=== PATIENT | male | born 1980 | race Hispanic/Latino ===

== ENCOUNTER 2020-11-22 21:27 | Inpatient (IN) | payer MEDICAID ==
[~2020-11-22] VITALS: Ht 185.4 cm; Wt 135.6 kg
[2020-11-22 21:33] VITALS: BP 151/92
[2020-11-22] MEDS ORDERED: DiphenhydrAMINE HCL 50 MG/ML VIAL ONE (21:36)
[2020-11-22] MEDS ORDERED: ZIPRASIDONE MESYLATE 20 MG/VIAL IM ONE (21:36)
[2020-11-22] MEDS ORDERED: LORAZEPAM 2 MG/ML 1 ML VIAL ONE (21:37)
[2020-11-22] MEDS ORDERED: 0.9%NACL 1000ML 1,000 ML IV ONE ×2 (21:37→22:30)
[2020-11-22 22:30] LABS: BASOPHILS % (AUTO) 0.6 % (0.0-5.0); EOSINOPHILS % (AUTO) 0.5 % (0.0-8.0); HEMATOCRIT 43.1 % (42-54); LYMPHOCYTES % (AUTO) 17.2 % (21.0-51.0); MEAN CORPUSCULAR HEMOGLOBIN 29.5 pg (27.0-33.0); MEAN CORPUSCULAR HGB CONC 34.3 g/dL (32.0-36.0); MONOCYTES % (AUTO) 7.8 % (3.0-13.0); NEUTROPHILS % (AUTO) 73.5 % (40.0-77.0); PLATELET COUNT (AUTO) 165 K/uL (130-400); RED BLOOD CELL COUNT(AUTO) 5.01 MIL/uL (4.50-6.20); RED CELL DISTRIBUTION WIDTH 13.1 % (11.0-15.5); WHITE BLOOD COUNT (AUTO) 10.3 K/uL (4.8-10.8)
[2020-11-22 22:34] LABS: CREATININE 1.1 mg/dL (0.5-1.5); POTASSIUM 3.4 mmol/L (3.5-5.1)
[2020-11-22 22:38] LABS: ALBUMIN 4.1 g/dL (3.5-5.0); BILIRUBIN,TOTAL 2.1 mg/dL (0.2-1.0); TOTAL PROTEIN, SERUM 7.3 g/dL (6.0-8.3)
[2020-11-22 22:41] VITALS: BP 126/63
[2020-11-23] VITALS (12 sets, daily range): BP systolic 110–156; BP diastolic 62–92
[2020-11-23] MEDS ORDERED: 0.9%NACL 1000ML 1,000 ML IV ONE ×3 (01:00→03:31)
[2020-11-23] MEDS ORDERED: ZIPRASIDONE MESYLATE 20 MG/VIAL IM ONE (03:27)
[2020-11-23] MEDS ORDERED: SODIUM BICARB 50MEQ 50ML VIAL 50 ML ONE (03:27)
[2020-11-23] MEDS ORDERED: LORAZEPAM 2 MG/ML 1 ML VIAL ONE (03:28)
[2020-11-23] MEDS ORDERED: HALOPERIDOL INJ 5 MG/ML VIAL IV ONE (03:30)
[2020-11-23] MEDS ORDERED: SODIUM BICARB 8.4% 50ML SYRINGE IVP ONE (03:30)
[2020-11-23] MEDS ORDERED: LORAZEPAM 2 MG/ML 1 ML VIAL IVP ONE (03:30)
[2020-11-23] MEDS ORDERED: LORAZEPAM 2 MG/ML 1 ML VIAL IVP PRN (04:30)
[2020-11-23] MEDS: LORAZEPAM 2 MG/ML 1 ML VIAL IVP PRN ×4 (07:59→17:16)
[2020-11-23] MEDS ORDERED: VASOPRESSIN 20 UNITS in 0.9%NACL 100ML 100 ML IV SCH (08:30)
[2020-11-23] MEDS: ENOXAPARIN SODIUM 40 MG/0.4 ML SYRINGE SQ SCH (09:00)
[2020-11-23] MEDS: FAMOTIDINE 20MG TAB PO SCH ×2 (09:00→20:45)
[2020-11-23] MEDS: 0.9%NACL 1000ML 1,000 ML IV SCH ×5 (09:21→22:37)
[2020-11-23] MEDS ORDERED: HALOPERIDOL DECAN(MONTHLY) 100 MG/ML IM SCH (11:30)
[2020-11-23] MEDS ORDERED: HALOPERIDOL INJ 5 MG/ML VIAL ONE (11:35)
[2020-11-23] MEDS ORDERED: DEXMEDETOMIDINE HCL 400 MCG in 0.9%NACL 100ML 100 ML IV SCH (14:46)
[2020-11-23] MEDS: OLANZAPINE ODT 5 MG TAB SL SCH (15:00)
[2020-11-23] MEDS ORDERED: OLANZAPINE ODT 5 MG TAB SL SCH (15:26)
[2020-11-23] MEDS ORDERED: CLONAZEPAM 2 MG TABLET PO SCH (15:30)
[2020-11-23] MEDS: DEXMEDETOMIDINE HCL 400 MCG in 0.9%NACL 100ML 100 ML IV PRN ×3 (17:04→19:13)
[2020-11-23] MEDS: CLONAZEPAM 2 MG TABLET PO SCH (20:45)
[2020-11-23] MEDS: [UNRECOGNIZED DRUG - MIXTURE] IV PRN ×2 (21:50)
[2020-11-24] VITALS (23 sets, daily range): BP systolic 115–167; BP diastolic 62–102
[2020-11-24] MEDS: DEXMEDETOMIDINE HCL 400 MCG in 0.9%NACL 100ML 100 ML IV PRN (02:20)
[2020-11-24] MEDS: [UNRECOGNIZED DRUG - MIXTURE] IV PRN ×2 (02:34)
[2020-11-24] MEDS: 0.9%NACL 1000ML 1,000 ML IV SCH ×2 (02:55→08:58)
[2020-11-24 03:47] LABS: BASOPHILS % (AUTO) 0.4 % (0.0-5.0); EOSINOPHILS % (AUTO) 1.8 % (0.0-8.0); HEMATOCRIT 40.4 % (42-54); LYMPHOCYTES % (AUTO) 25.7 % (21.0-51.0); MEAN CORPUSCULAR HEMOGLOBIN 29.5 pg (27.0-33.0); MEAN CORPUSCULAR HGB CONC 34.4 g/dL (32.0-36.0); MEAN CORPUSCULAR VOLUME 85.8 fL (79-99); MONOCYTES % (AUTO) 7.2 % (3.0-13.0); NEUTROPHILS % (AUTO) 64.7 % (40.0-77.0); PLATELET COUNT (AUTO) 142 K/uL (130-400); RED BLOOD CELL COUNT(AUTO) 4.71 MIL/uL (4.50-6.20); RED CELL DISTRIBUTION WIDTH 12.6 % (11.0-15.5); WHITE BLOOD COUNT (AUTO) 8.4 K/uL (4.8-10.8)
[2020-11-24 04:25] LABS: ALBUMIN 3.1 g/dL (3.5-5.0); BILIRUBIN,TOTAL 1.5 mg/dL (0.2-1.0); CREATININE 0.9 mg/dL (0.5-1.5); POTASSIUM 3.4 mmol/L (3.5-5.1); TOTAL PROTEIN, SERUM 5.8 g/dL (6.0-8.3)
[2020-11-24] MEDS: FAMOTIDINE 20MG TAB PO SCH ×2 (08:57→19:38)
[2020-11-24] MEDS: ENOXAPARIN SODIUM 40 MG/0.4 ML SYRINGE SQ SCH (08:58)
[2020-11-24] MEDS: OLANZAPINE ODT 5 MG TAB SL SCH (08:58)
[2020-11-24] MEDS: CLONAZEPAM 2 MG TABLET PO SCH ×3 (08:58→19:38)
[2020-11-24] MEDS ORDERED: POTASSIUM CHLORIDE 10MEQ/100ML 10 MEQ/100 ML ML IV SCH (10:00)
[2020-11-24] MEDS ORDERED: POTASSIUM CHLORIDE 10MEQ/100ML 100 ML IV SCH (10:30)
[2020-11-24] MEDS: LACTATED RINGERS 1000ML 1,000 ML IV SCH ×3 (10:41→22:37)
[2020-11-24 10:45] LABS: AMYLASE 33 U/L (25-115); LIPASE 82 U/L (114-286)
[2020-11-24] MEDS: [UNRECOGNIZED DRUG - OTHER] IM SCH (11:53)
[2020-11-24] MEDS: THIAMINE HCL IM SCH (11:53)
[2020-11-24] MEDS: FOLIC ACID IM SCH (11:53)
[2020-11-24] MEDS ORDERED: COMPOUND IV REFRIGERATED 1 EACH IVSOLN MISC PRN (12:00)
[2020-11-24] MEDS: DEXMEDETOMIDINE HCL 1,000 MCG in 0.9% NACL 250ML 250 ML IV PRN ×3 (12:00→23:54)
[2020-11-24] MEDS: HALOPERIDOL INJ 5 MG/ML VIAL IV PRN ×2 (19:44→23:58)
[2020-11-24] MEDS: LORAZEPAM 2 MG/ML 1 ML VIAL IVP PRN (21:17)
[2020-11-25] VITALS (24 sets, daily range): BP systolic 123–165; BP diastolic 54–104
[2020-11-25 05:23] LABS: BILIRUBIN,TOTAL 1.8 mg/dL (0.2-1.0); CREATININE 0.9 mg/dL (0.5-1.5); POTASSIUM 3.3 mmol/L (3.5-5.1)
[2020-11-25] MEDS: LACTATED RINGERS 1000ML 1,000 ML IV SCH ×3 (06:00→23:45)
[2020-11-25 06:12] LABS: BASOPHILS % (AUTO) 0.7 % (0.0-5.0); HEMATOCRIT 39.4 % (42-54); LYMPHOCYTES % (AUTO) 21.4 % (21.0-51.0); MEAN CORPUSCULAR HEMOGLOBIN 29.9 pg (27.0-33.0); MEAN CORPUSCULAR HGB CONC 35.3 g/dL (32.0-36.0); MEAN CORPUSCULAR VOLUME 84.7 fL (79-99); NEUTROPHILS % (AUTO) 67.4 % (40.0-77.0); PLATELET COUNT (AUTO) 159 K/uL (130-400); RED BLOOD CELL COUNT(AUTO) 4.65 MIL/uL (4.50-6.20); RED CELL DISTRIBUTION WIDTH 12.6 % (11.0-15.5); WHITE BLOOD COUNT (AUTO) 8.8 K/uL (4.8-10.8)
[2020-11-25 06:25] LABS: CREATININE 0.9 mg/dL (0.5-1.5); MAGNESIUM 1.5 mg/dL (1.80-2.40); POTASSIUM 3.3 mmol/L (3.5-5.1)
[2020-11-25] MEDS: [UNRECOGNIZED DRUG - OTHER] IM SCH (08:23)
[2020-11-25] MEDS: THIAMINE HCL IM SCH (08:23)
[2020-11-25] MEDS: FOLIC ACID IM SCH (08:23)
[2020-11-25] MEDS ORDERED: POTASSIUM CHLORIDE 10% ELIXIR 20 MEQ/15 ML UDCUP PO SCH (08:30)
[2020-11-25] MEDS ORDERED: MAGNESIUM 2GM PREMIX 50ML 50 ML IV SCH (08:30)
[2020-11-25] MEDS: OLANZAPINE ODT 5 MG TAB SL SCH ×3 (08:48→20:33)
[2020-11-25] MEDS: CLONAZEPAM 2 MG TABLET PO SCH ×3 (08:48→20:33)
[2020-11-25] MEDS: FAMOTIDINE 20MG TAB PO SCH ×2 (08:48→20:33)
[2020-11-25] MEDS: ENOXAPARIN SODIUM 40 MG/0.4 ML SYRINGE SQ SCH (08:48)
[2020-11-25] MEDS ORDERED: THIAMINE HCL 100 MG/ML 2ML VIAL IVP SCH (09:00)
[2020-11-25] MEDS ORDERED: FOLIC ACID 5 MG/ML VIAL IV SCH (09:00)
[2020-11-25] MEDS ORDERED: LACTULOSE 20 GM/30 ML UDCUP PO PRN (11:00)
[2020-11-25] MEDS: FOLIC ACID 5 MG/ML VIAL IV SCH (13:07)
[2020-11-25] MEDS: RIFAXIMIN 550 MG TABLET PO SCH ×2 (13:07→20:33)
[2020-11-26] VITALS (24 sets, daily range): BP systolic 98–177; BP diastolic 53–101
[2020-11-26] MEDS: LACTATED RINGERS 1000ML 1,000 ML IV SCH ×2 (02:00→08:40)
[2020-11-26] MEDS ORDERED: DEXMEDETOMIDINE HCL 200 MCG/2 ML VIAL IV ONE (03:29)
[2020-11-26] MEDS: DEXMEDETOMIDINE HCL 1,000 MCG in 0.9% NACL 250ML 250 ML IV PRN ×2 (03:37→14:41)
[2020-11-26 03:41] LABS: HEMATOCRIT 39.5 % (42-54); MEAN CORPUSCULAR HEMOGLOBIN 29.3 pg (27.0-33.0); MEAN CORPUSCULAR HGB CONC 35.4 g/dL (32.0-36.0); MEAN CORPUSCULAR VOLUME 82.6 fL (79-99); RED BLOOD CELL COUNT(AUTO) 4.78 MIL/uL (4.50-6.20); RED CELL DISTRIBUTION WIDTH 12.2 % (11.0-15.5); WHITE BLOOD COUNT (AUTO) 8.9 K/uL (4.8-10.8)
[2020-11-26 04:06] LABS: ALBUMIN 2.9 g/dL (3.5-5.0); BILIRUBIN,TOTAL 1.5 mg/dL (0.2-1.0); CREATININE 0.9 mg/dL (0.5-1.5); POTASSIUM 3.6 mmol/L (3.5-5.1)
[2020-11-26] MEDS ORDERED: HYDRALAZINE 20MG/ML VIAL ONE (05:21)
[2020-11-26] MEDS ORDERED: HYDRALAZINE 20MG/ML VIAL IV PRN (05:30)
[2020-11-26] MEDS: CLONAZEPAM 2 MG TABLET PO SCH ×2 (08:36→14:00)
[2020-11-26] MEDS: FAMOTIDINE 20MG TAB PO SCH ×2 (08:36→21:00)
[2020-11-26] MEDS: AMLODIPINE 5 MG TAB PO SCH (08:36)
[2020-11-26] MEDS: RIFAXIMIN 550 MG TABLET PO SCH ×2 (08:36→21:00)
[2020-11-26] MEDS: THIAMINE HCL 100 MG/ML 2ML VIAL IVP SCH (08:42)
[2020-11-26] MEDS: ENOXAPARIN SODIUM 40 MG/0.4 ML SYRINGE SQ SCH (08:42)
[2020-11-26] MEDS: OLANZAPINE ODT 5 MG TAB SL SCH ×2 (08:42→14:33)
[2020-11-26] MEDS: FOLIC ACID 5 MG/ML VIAL IV SCH (08:43)
[2020-11-26] MEDS: LORAZEPAM 2 MG/ML 1 ML VIAL IVP PRN ×3 (10:26→19:59)
[2020-11-26] MEDS ORDERED: PROPOFOL 1000 MG/100 ML 100 ML IV ONE (11:02)
[2020-11-26] MEDS: LACTULOSE 20 GM/30 ML UDCUP PO SCH ×2 (14:00→21:00)
[2020-11-26] MEDS ORDERED: HALOPERIDOL INJ 5 MG/ML VIAL IV PRN (15:30)
[2020-11-26] MEDS ORDERED: LORAZEPAM 2 MG/ML 1 ML VIAL IVP PRN (16:00)
[2020-11-26] MEDS ORDERED: PHARMACY COMMUNICATION MISC PRN (16:00)
[2020-11-26] MEDS: HALOPERIDOL INJ 5 MG/ML VIAL IV PRN ×2 (16:14→22:04)
[2020-11-26] MEDS ORDERED: THIAMINE HCL 100 MG, FOLIC ACID 1 MG, M.V.I. IV [ADULT] 10 ML in 0.9%NACL 1000ML 1,000 ML IV SCH ×2 (17:00→20:00)
[2020-11-27] VITALS (22 sets, daily range): BP systolic 97–183; BP diastolic 49–111
[2020-11-27] MEDS: LORAZEPAM 2 MG/ML 1 ML VIAL IVP PRN ×7 (00:15→21:46)
[2020-11-27] MEDS ORDERED: DEXMEDETOMIDINE HCL 200 MCG/2 ML VIAL IV ONE (03:31)
[2020-11-27] MEDS: DEXMEDETOMIDINE HCL 1,000 MCG in 0.9% NACL 250ML 250 ML IV PRN ×2 (03:36→18:16)
[2020-11-27] MEDS: HALOPERIDOL INJ 5 MG/ML VIAL IV PRN ×2 (04:11→21:58)
[2020-11-27 06:03] LABS: MAGNESIUM 1.7 mg/dL (1.80-2.40); PHOSPHORUS 3.8 mg/dL (2.5-4.9)
[2020-11-27] MEDS ORDERED: THIAMINE HCL 100 MG/ML 2ML VIAL IV SCH (09:00)
[2020-11-27] MEDS: FOLIC ACID 5 MG/ML VIAL IV SCH (09:00)
[2020-11-27] MEDS: LACTULOSE 20 GM/30 ML UDCUP PO SCH ×3 (10:09→20:39)
[2020-11-27] MEDS: RIFAXIMIN 550 MG TABLET PO SCH ×2 (10:09→19:48)
[2020-11-27] MEDS: FAMOTIDINE 20MG TAB PO SCH ×2 (10:10→19:48)
[2020-11-27] MEDS: THIAMINE HCL 100 MG/ML 2ML VIAL IVP SCH (10:10)
[2020-11-27] MEDS: AMLODIPINE 5 MG TAB PO SCH (10:10)
[2020-11-27] MEDS: ENOXAPARIN SODIUM 40 MG/0.4 ML SYRINGE SQ SCH (10:11)
[2020-11-27] MEDS: LACTATED RINGERS 1000ML 1,000 ML IV SCH ×2 (16:43→20:00)
[2020-11-27 18:15] LABS: HEMATOCRIT 42.4 % (42-54); MEAN CORPUSCULAR HEMOGLOBIN 29.4 pg (27.0-33.0); MEAN CORPUSCULAR HGB CONC 35.1 g/dL (32.0-36.0); MEAN CORPUSCULAR VOLUME 83.6 fL (79-99); PLATELET COUNT (AUTO) 176 K/uL (130-400); RED BLOOD CELL COUNT(AUTO) 5.07 MIL/uL (4.50-6.20); RED CELL DISTRIBUTION WIDTH 12.7 % (11.0-15.5)
[2020-11-27 18:34] LABS: ALBUMIN 3.2 g/dL (3.5-5.0); BILIRUBIN,TOTAL 1.3 mg/dL (0.2-1.0); CREATININE 0.9 mg/dL (0.5-1.5); POTASSIUM 3.4 mmol/L (3.5-5.1); TOTAL PROTEIN, SERUM 6.5 g/dL (6.0-8.3)
[2020-11-27 18:51] LABS: BAND NEUTROPHILS % (MANUAL) 3 % (0-2); EOSINOPHILS % (MANUAL) 2 % (1-6); LYMPHOCYTES % (MANUAL) 21 % (22-44); MAN.DIFF COMMENT-IMPRESSION MANUAL DIFFERENTIAL; MONOCYTES % (MANUAL) 8 % (2-9); REACTIVE LYMPHOCYTES 7 % (0-0); SEGMENTED NEUTROPHILS % 59 % (40-70)
[2020-11-27] MEDS: CHLORDIAZEPOXIDE HCL 25 MG CAP PO PRN (19:49)
[2020-11-27] MEDS: QUETIAPINE FUMARATE 25 MG TAB PO SCH (19:49)
[2020-11-27] MEDS ORDERED: POTASSIUM CHLORIDE 10MEQ/100ML 100 ML IV ONE (20:39)
[2020-11-28] VITALS (17 sets, daily range): BP systolic 88–155; BP diastolic 60–128
[2020-11-28] MEDS: CHLORDIAZEPOXIDE HCL 25 MG CAP PO PRN ×4 (00:04→20:14)
[2020-11-28] MEDS: DEXMEDETOMIDINE HCL 1,000 MCG in 0.9% NACL 250ML 250 ML IV PRN ×3 (00:05→21:19)
[2020-11-28] MEDS: LACTATED RINGERS 1000ML 1,000 ML IV SCH ×4 (00:40→22:48)
[2020-11-28 03:54] LABS: HEMATOCRIT 39.4 % (42-54); MEAN CORPUSCULAR HEMOGLOBIN 29.8 pg (27.0-33.0); MEAN CORPUSCULAR HGB CONC 35.8 g/dL (32.0-36.0); MEAN CORPUSCULAR VOLUME 83.3 fL (79-99); RED BLOOD CELL COUNT(AUTO) 4.73 MIL/uL (4.50-6.20); RED CELL DISTRIBUTION WIDTH 12.7 % (11.0-15.5); WHITE BLOOD COUNT (AUTO) 7.5 K/uL (4.8-10.8)
[2020-11-28 04:18] LABS: CREATININE 0.9 mg/dL (0.5-1.5); POTASSIUM 3.4 mmol/L (3.5-5.1)
[2020-11-28] MEDS ORDERED: DEXMEDETOMIDINE HCL 200 MCG/2 ML VIAL IV ONE (05:02)
[2020-11-28] MEDS ORDERED: POTASSIUM CHLORIDE 10% ELIXIR 20 MEQ/15 ML UDCUP PO PRN (05:30)
[2020-11-28] MEDS ORDERED: POTASSIUM CHLORIDE 10MEQ/100ML 100 ML IV PRN (05:30)
[2020-11-28] MEDS: LACTULOSE 20 GM/30 ML UDCUP PO SCH ×3 (08:59→20:14)
[2020-11-28] MEDS: LORAZEPAM 2 MG/ML 1 ML VIAL IVP PRN ×3 (09:07→22:53)
[2020-11-28] MEDS: THIAMINE HCL 100 MG/ML 2ML VIAL IVP SCH (09:07)
[2020-11-28] MEDS: HALOPERIDOL INJ 5 MG/ML VIAL IV PRN ×2 (09:07→18:33)
[2020-11-28] MEDS: AMLODIPINE 5 MG TAB PO SCH (09:08)
[2020-11-28] MEDS: RIFAXIMIN 550 MG TABLET PO SCH ×2 (09:08→20:14)
[2020-11-28] MEDS: QUETIAPINE FUMARATE 25 MG TAB PO SCH (09:08)
[2020-11-28] MEDS: FAMOTIDINE 20MG TAB PO SCH ×2 (09:08→20:14)
[2020-11-28] MEDS: ENOXAPARIN SODIUM 40 MG/0.4 ML SYRINGE SQ SCH (09:08)
[2020-11-28] MEDS: KCL 20 MEQ ERTAB PO PRN (13:21)
[2020-11-28] MEDS: FOLIC ACID 5 MG/ML VIAL IV SCH (13:49)
[2020-11-28] MEDS ORDERED: QUETIAPINE FUMARATE 25 MG TAB PO SCH (16:00)
[2020-11-28] MEDS ORDERED: DiphenhydrAMINE HCL 50 MG/ML VIAL ONE (18:26)
[2020-11-28] MEDS: QUETIAPINE FUMARATE 100 MG TAB PO SCH (20:14)
[2020-11-29] VITALS (22 sets, daily range): BP systolic 111–168; BP diastolic 63–95
[2020-11-29] MEDS: LORAZEPAM 2 MG/ML 1 ML VIAL IVP PRN ×4 (02:39→20:40)
[2020-11-29] MEDS: LACTATED RINGERS 1000ML 1,000 ML IV SCH ×4 (03:20→19:51)
[2020-11-29] MEDS: DEXMEDETOMIDINE HCL 1,000 MCG in 0.9% NACL 250ML 250 ML IV PRN ×2 (05:22→15:34)
[2020-11-29] MEDS: HALOPERIDOL INJ 5 MG/ML VIAL IV PRN ×2 (08:05→15:15)
[2020-11-29] MEDS: QUETIAPINE FUMARATE 25 MG TAB PO SCH (08:29)
[2020-11-29] MEDS: FAMOTIDINE 20MG TAB PO SCH ×2 (08:29→19:46)
[2020-11-29] MEDS: ENOXAPARIN SODIUM 40 MG/0.4 ML SYRINGE SQ SCH (08:29)
[2020-11-29] MEDS: AMLODIPINE 5 MG TAB PO SCH (08:29)
[2020-11-29] MEDS: RIFAXIMIN 550 MG TABLET PO SCH ×2 (08:29→19:46)
[2020-11-29] MEDS: LACTULOSE 20 GM/30 ML UDCUP PO SCH ×3 (08:38→19:46)
[2020-11-29] MEDS: THIAMINE HCL 100 MG/ML 2ML VIAL IVP SCH (08:45)
[2020-11-29] MEDS: FOLIC ACID 5 MG/ML VIAL IV SCH (08:45)
[2020-11-29] MEDS: CHLORDIAZEPOXIDE HCL 25 MG CAP PO PRN (12:43)
[2020-11-29] MEDS ORDERED: DiphenhydrAMINE HCL 50 MG/ML VIAL IM ONE (15:00)
[2020-11-29] MEDS ORDERED: DiphenhydrAMINE HCL 50 MG/ML VIAL ONE (15:07)
[2020-11-29] MEDS: QUETIAPINE FUMARATE 100 MG TAB PO SCH (19:46)
[2020-11-29] MEDS: HALOPERIDOL INJ 5 MG/ML VIAL IV SCH (22:13)
[2020-11-29] MEDS: DiphenhydrAMINE HCL 50 MG/ML VIAL IV SCH (22:14)
[2020-11-30] VITALS (24 sets, daily range): BP systolic 116–174; BP diastolic 63–107
[2020-11-30] MEDS: DEXMEDETOMIDINE HCL 1,000 MCG in 0.9% NACL 250ML 250 ML IV PRN ×3 (00:39→20:40)
[2020-11-30] MEDS: LACTATED RINGERS 1000ML 1,000 ML IV SCH ×2 (03:29→16:18)
[2020-11-30] MEDS: DiphenhydrAMINE HCL 50 MG/ML VIAL IV SCH ×3 (03:29→16:19)
[2020-11-30] MEDS: HALOPERIDOL INJ 5 MG/ML VIAL IV SCH ×4 (03:29→23:10)
[2020-11-30] MEDS: CHLORDIAZEPOXIDE HCL 25 MG CAP PO PRN ×4 (05:00→16:19)
[2020-11-30] MEDS: RIFAXIMIN 550 MG TABLET PO SCH ×2 (08:35→19:43)
[2020-11-30] MEDS: THIAMINE HCL 100 MG/ML 2ML VIAL IVP SCH (08:36)
[2020-11-30] MEDS: FAMOTIDINE 20MG TAB PO SCH ×2 (08:36→19:42)
[2020-11-30] MEDS: LACTULOSE 20 GM/30 ML UDCUP PO SCH ×3 (08:36→19:42)
[2020-11-30] MEDS: AMLODIPINE 5 MG TAB PO SCH (08:36)
[2020-11-30] MEDS: ENOXAPARIN SODIUM 40 MG/0.4 ML SYRINGE SQ SCH (08:36)
[2020-11-30] MEDS: QUETIAPINE FUMARATE 25 MG TAB PO SCH ×2 (08:36→20:15)
[2020-11-30] MEDS: FOLIC ACID 5 MG/ML VIAL IV SCH (09:00)
[2020-11-30] MEDS: RISPERIDONE 1 MG TABLET PO SCH ×2 (12:32→17:37)
[2020-12-01] VITALS (15 sets, daily range): BP systolic 115–169; BP diastolic 65–121
[2020-12-01] MEDS: RISPERIDONE 1 MG TABLET PO SCH ×5 (00:19→23:08)
[2020-12-01] MEDS: DiphenhydrAMINE HCL 50 MG/ML VIAL IV SCH ×3 (01:17→17:48)
[2020-12-01] MEDS: LACTATED RINGERS 1000ML 1,000 ML IV SCH (02:56)
[2020-12-01] MEDS: HALOPERIDOL INJ 5 MG/ML VIAL IV SCH ×4 (04:54→23:08)
[2020-12-01] MEDS: LACTULOSE 20 GM/30 ML UDCUP PO SCH ×3 (08:18→20:53)
[2020-12-01] MEDS: QUETIAPINE FUMARATE 25 MG TAB PO SCH ×2 (08:19→20:54)
[2020-12-01] MEDS: CHLORDIAZEPOXIDE HCL 25 MG CAP PO PRN ×2 (08:19→11:45)
[2020-12-01] MEDS: FAMOTIDINE 20MG TAB PO SCH ×2 (08:19→20:53)
[2020-12-01] MEDS: ENOXAPARIN SODIUM 40 MG/0.4 ML SYRINGE SQ SCH (08:19)
[2020-12-01] MEDS: RIFAXIMIN 550 MG TABLET PO SCH ×2 (08:19→20:53)
[2020-12-01] MEDS: AMLODIPINE 5 MG TAB PO SCH (08:19)
[2020-12-01] MEDS: THIAMINE HCL 100 MG/ML 2ML VIAL IVP SCH (08:20)
[2020-12-01] MEDS: LORAZEPAM 2 MG/ML 1 ML VIAL IVP PRN ×3 (09:00→13:18)
[2020-12-01] MEDS: FOLIC ACID 5 MG/ML VIAL IV SCH (09:00)
[2020-12-01 09:26] LABS: HEMATOCRIT 43.2 % (42-54); MEAN CORPUSCULAR HEMOGLOBIN 29.2 pg (27.0-33.0); MEAN CORPUSCULAR VOLUME 85.7 fL (79-99); RED BLOOD CELL COUNT(AUTO) 5.04 MIL/uL (4.50-6.20); RED CELL DISTRIBUTION WIDTH 13.3 % (11.0-15.5)
[2020-12-01 09:38] LABS: POTASSIUM 4.4 mmol/L (3.5-5.1)
[2020-12-01 09:50] LABS: ALBUMIN 3.3 g/dL (3.5-5.0); BILIRUBIN,TOTAL 1.1 mg/dL (0.2-1.0); PHOSPHORUS 3.6 mg/dL (2.5-4.9); THYROID STIMULATING HORMONE 1.56 uIU/mL (0.36-3.74); TOTAL PROTEIN, SERUM 6.8 g/dL (6.0-8.3)
[2020-12-01] MEDS: DIAZEPAM 5 MG/ML 2 ML SYG IV SCH ×3 (14:39→23:52)
[2020-12-02] VITALS (7 sets, daily range): BP systolic 126–174; BP diastolic 74–96
[2020-12-02] MEDS: DiphenhydrAMINE HCL 50 MG/ML VIAL IV SCH ×3 (01:05→17:32)
[2020-12-02 03:59] LABS: HEMATOCRIT 46.9 % (42-54); MEAN CORPUSCULAR HEMOGLOBIN 29.4 pg (27.0-33.0); MEAN CORPUSCULAR HGB CONC 34.1 g/dL (32.0-36.0); MEAN CORPUSCULAR VOLUME 86.2 fL (79-99); RED BLOOD CELL COUNT(AUTO) 5.44 MIL/uL (4.50-6.20); RED CELL DISTRIBUTION WIDTH 13.7 % (11.0-15.5); WHITE BLOOD COUNT (AUTO) 12.1 K/uL (4.8-10.8)
[2020-12-02 04:13] LABS: CREATININE 1.1 mg/dL (0.5-1.5); MAGNESIUM 1.9 mg/dL (1.80-2.40); PHOSPHORUS 4.2 mg/dL (2.5-4.9); POTASSIUM 4.3 mmol/L (3.5-5.1)
[2020-12-02] MEDS: HALOPERIDOL INJ 5 MG/ML VIAL IV SCH ×3 (05:00→17:33)
[2020-12-02] MEDS: DIAZEPAM 5 MG/ML 2 ML SYG IV SCH ×3 (05:40→17:33)
[2020-12-02] MEDS: RISPERIDONE 1 MG TABLET PO SCH ×3 (06:00→17:33)
[2020-12-02] MEDS: RIFAXIMIN 550 MG TABLET PO SCH ×2 (09:10→20:29)
[2020-12-02] MEDS: FAMOTIDINE 20MG TAB PO SCH ×2 (09:10→20:30)
[2020-12-02] MEDS: QUETIAPINE FUMARATE 25 MG TAB PO SCH ×2 (09:10→20:28)
[2020-12-02] MEDS: AMLODIPINE 5 MG TAB PO SCH (09:10)
[2020-12-02] MEDS: LACTULOSE 20 GM/30 ML UDCUP PO SCH ×3 (09:11→20:28)
[2020-12-02] MEDS: ENOXAPARIN SODIUM 40 MG/0.4 ML SYRINGE SQ SCH (09:11)
[2020-12-02] MEDS: THIAMINE HCL 100 MG/ML 2ML VIAL IVP SCH (09:11)
[2020-12-02] MEDS: FOLIC ACID 5 MG/ML VIAL IV SCH (09:11)
[2020-12-02] MEDS: LORAZEPAM 2 MG/ML 1 ML VIAL IVP PRN (21:45)
[2020-12-03 01:15] VITALS: BP 154/91
[2020-12-03] MEDS: DIAZEPAM 5 MG/ML 2 ML SYG IV SCH ×4 (02:15→21:17)
[2020-12-03] MEDS: RISPERIDONE 1 MG TABLET PO SCH ×4 (02:15→21:16)
[2020-12-03] MEDS: HALOPERIDOL INJ 5 MG/ML VIAL IV SCH ×5 (02:54→23:43)
[2020-12-03] MEDS: DiphenhydrAMINE HCL 50 MG/ML VIAL IV SCH ×3 (02:54→17:23)
[2020-12-03] MEDS: 0.9%NACL 1000ML 1,000 ML IV SCH ×2 (04:57→21:14)
[2020-12-03 05:15] VITALS: BP 136/76
[2020-12-03 08:00] VITALS: BP 138/85
[2020-12-03] MEDS: FAMOTIDINE 20MG TAB PO SCH ×2 (08:43→21:14)
[2020-12-03] MEDS: AMLODIPINE 5 MG TAB PO SCH (08:43)
[2020-12-03] MEDS: LACTULOSE 20 GM/30 ML UDCUP PO SCH ×3 (08:43→21:14)
[2020-12-03] MEDS: RIFAXIMIN 550 MG TABLET PO SCH ×2 (08:43→21:14)
[2020-12-03] MEDS: QUETIAPINE FUMARATE 25 MG TAB PO SCH ×2 (08:43→21:14)
[2020-12-03] MEDS: ENOXAPARIN SODIUM 40 MG/0.4 ML SYRINGE SQ SCH (08:44)
[2020-12-03] MEDS: THIAMINE HCL 100 MG/ML 2ML VIAL IVP SCH (08:44)
[2020-12-03] MEDS ORDERED: LOSA50TA64 PO (08:50)
[2020-12-03] MEDS ORDERED: [UNRECOGNIZED DRUG - CODE] TP (08:50)
[2020-12-03] MEDS ORDERED: ARIP10TA54 PO (08:50)
[2020-12-03] MEDS ORDERED: HYDR-3422 PO (08:50)
[2020-12-03] MEDS ORDERED: ARIP20TA21 PO (08:50)
[2020-12-03] MEDS ORDERED: [UNRECOGNIZED DRUG - CODE] TP (08:50)
[2020-12-03] MEDS ORDERED: TRAZ-258 PO (08:50)
[2020-12-03] MEDS: FOLIC ACID 5 MG/ML VIAL IV SCH (09:00)
[2020-12-03 11:12] VITALS: BP 166/99
[2020-12-03 16:00] VITALS: BP 126/75
[2020-12-03 19:00] VITALS: BP 179/99
[2020-12-04] VITALS: BP 185/97
[2020-12-04] MEDS: DiphenhydrAMINE HCL 50 MG/ML VIAL IV SCH ×3 (01:29→17:25)
[2020-12-04] MEDS: RISPERIDONE 1 MG TABLET PO SCH ×4 (03:19→18:19)
[2020-12-04] MEDS: DIAZEPAM 5 MG/ML 2 ML SYG IV SCH ×4 (03:20→18:19)
[2020-12-04 03:59] VITALS: BP 175/93
[2020-12-04] MEDS: 0.9%NACL 1000ML 1,000 ML IV SCH ×3 (05:45→20:35)
[2020-12-04] MEDS: HALOPERIDOL INJ 5 MG/ML VIAL IV SCH ×4 (05:45→23:02)
[2020-12-04 07:30] VITALS: BP 153/68
[2020-12-04] MEDS ORDERED: RISP1TAB89 PO (08:06)
[2020-12-04] MEDS ORDERED: AMLO5TAB4 PO (08:06)
[2020-12-04] MEDS ORDERED: QUET25TA PO (08:06)
[2020-12-04] MEDS ORDERED: FOL5I IV (08:06)
[2020-12-04] MEDS ORDERED: HYDR25TA PO (08:06)
[2020-12-04] MEDS ORDERED: LISI10TA24 PO (08:06)
[2020-12-04] MEDS ORDERED: RIFA550T PO (08:06)
[2020-12-04 11:00] VITALS: BP 178/91
[2020-12-04] MEDS: LACTULOSE 20 GM/30 ML UDCUP PO SCH ×3 (11:39→20:35)
[2020-12-04] MEDS: HYDROCHLOROTHIAZIDE 25 MG TABLET PO SCH (11:40)
[2020-12-04] MEDS: AMLODIPINE 5 MG TAB PO SCH (11:41)
[2020-12-04] MEDS: RIFAXIMIN 550 MG TABLET PO SCH ×2 (11:42→20:35)
[2020-12-04] MEDS: FOLIC ACID 5 MG/ML VIAL IV SCH (11:42)
[2020-12-04] MEDS: FAMOTIDINE 20MG TAB PO SCH ×2 (11:42→20:35)
[2020-12-04] MEDS: LISINOPRIL 10 MG TABLET PO SCH (11:42)
[2020-12-04] MEDS: THIAMINE HCL 100 MG/ML 2ML VIAL IVP SCH (11:51)
[2020-12-04] MEDS: QUETIAPINE FUMARATE 25 MG TAB PO SCH ×2 (11:51→20:35)
[2020-12-04] MEDS ORDERED: ZIPRASIDONE MESYLATE 20 MG/VIAL IM SCH (16:00)
[2020-12-04] MEDS: ENOXAPARIN SODIUM 40 MG/0.4 ML SYRINGE SQ SCH (17:18)
[2020-12-04 19:00] VITALS: BP 130/72
[2020-12-05] VITALS (7 sets, daily range): BP systolic 113–150; BP diastolic 66–89
[2020-12-05] MEDS: DIAZEPAM 5 MG/ML 2 ML SYG IV SCH ×4 (00:02→17:59)
[2020-12-05] MEDS: DiphenhydrAMINE HCL 50 MG/ML VIAL IV SCH ×3 (01:00→17:52)
[2020-12-05] MEDS: RISPERIDONE 1 MG TABLET PO SCH ×4 (01:19→17:58)
[2020-12-05] MEDS: HALOPERIDOL INJ 5 MG/ML VIAL IV SCH ×4 (05:10→23:08)
[2020-12-05] MEDS: ENOXAPARIN SODIUM 40 MG/0.4 ML SYRINGE SQ SCH (08:12)
[2020-12-05] MEDS: QUETIAPINE FUMARATE 25 MG TAB PO SCH ×2 (08:12→20:01)
[2020-12-05] MEDS: AMLODIPINE 5 MG TAB PO SCH (08:13)
[2020-12-05] MEDS: HYDROCHLOROTHIAZIDE 25 MG TABLET PO SCH (08:13)
[2020-12-05] MEDS: FAMOTIDINE 20MG TAB PO SCH ×2 (08:13→20:01)
[2020-12-05] MEDS: LISINOPRIL 10 MG TABLET PO SCH (08:13)
[2020-12-05] MEDS: RIFAXIMIN 550 MG TABLET PO SCH ×2 (08:13→20:01)
[2020-12-05] MEDS: LACTULOSE 20 GM/30 ML UDCUP PO SCH ×3 (08:14→20:01)
[2020-12-05] MEDS: THIAMINE HCL 100 MG/ML 2ML VIAL IVP SCH (08:14)
[2020-12-05] MEDS: FOLIC ACID 5 MG/ML VIAL IV SCH (09:00)
[2020-12-05 13:49] LABS: HEMATOCRIT 45.2 % (42-54); MEAN CORPUSCULAR HEMOGLOBIN 29.3 pg (27.0-33.0); MEAN CORPUSCULAR HGB CONC 33.6 g/dL (32.0-36.0); MEAN CORPUSCULAR VOLUME 87.3 fL (79-99); RED BLOOD CELL COUNT(AUTO) 5.18 MIL/uL (4.50-6.20); RED CELL DISTRIBUTION WIDTH 13.6 % (11.0-15.5); WHITE BLOOD COUNT (AUTO) 7.9 K/uL (4.8-10.8)
[2020-12-05 14:02] LABS: CREATININE 0.9 mg/dL (0.5-1.5); POTASSIUM 3.3 mmol/L (3.5-5.1)
[2020-12-05] MEDS ORDERED: KCL 20 MEQ ERTAB PO ONE (14:30)
[2020-12-05] MEDS: CHLORPROMAZINE HCL 25 MG/ML 1ML AMP IM SCH (16:00)
[2020-12-05] MEDS: 0.9%NACL 1000ML 1,000 ML IV SCH ×2 (16:30→20:02)
[2020-12-06] MEDS: DIAZEPAM 5 MG/ML 2 ML SYG IV SCH ×4 (00:04→16:41)
[2020-12-06] MEDS: RISPERIDONE 1 MG TABLET PO SCH ×4 (00:05→18:09)
[2020-12-06] MEDS: DiphenhydrAMINE HCL 50 MG/ML VIAL IV SCH ×3 (01:03→16:35)
[2020-12-06 04:15] VITALS: BP 127/50
[2020-12-06] MEDS: 0.9%NACL 1000ML 1,000 ML IV SCH ×2 (05:07→22:30)
[2020-12-06] MEDS: HALOPERIDOL INJ 5 MG/ML VIAL IV SCH ×4 (05:07→23:42)
[2020-12-06 08:00] VITALS: BP 158/86
[2020-12-06] MEDS: ENOXAPARIN SODIUM 40 MG/0.4 ML SYRINGE SQ SCH (08:57)
[2020-12-06] MEDS: LISINOPRIL 10 MG TABLET PO SCH (08:58)
[2020-12-06] MEDS: FAMOTIDINE 20MG TAB PO SCH ×2 (08:58→20:30)
[2020-12-06] MEDS: HYDROCHLOROTHIAZIDE 25 MG TABLET PO SCH (08:58)
[2020-12-06] MEDS: LACTULOSE 20 GM/30 ML UDCUP PO SCH ×3 (08:58→20:30)
[2020-12-06] MEDS: RIFAXIMIN 550 MG TABLET PO SCH ×2 (08:58→20:30)
[2020-12-06] MEDS: QUETIAPINE FUMARATE 25 MG TAB PO SCH ×2 (08:58→20:30)
[2020-12-06] MEDS: AMLODIPINE 5 MG TAB PO SCH (08:58)
[2020-12-06] MEDS: THIAMINE HCL 100 MG/ML 2ML VIAL IVP SCH (08:59)
[2020-12-06] MEDS: FOLIC ACID 5 MG/ML VIAL IV SCH (09:00)
[2020-12-06] MEDS: CHLORPROMAZINE HCL 25 MG/ML 1ML AMP IM SCH ×3 (09:31→21:02)
[2020-12-06 12:00] VITALS: BP 147/76
[2020-12-06] MEDS: METOPROLOL TARTRATE 25 MG TAB PO SCH ×2 (13:00→20:30)
[2020-12-06 16:00] VITALS: BP 144/79
[2020-12-06] MEDS: HALOPERIDOL INJ 5 MG/ML VIAL IV PRN (16:41)
[2020-12-06 20:00] VITALS: BP 131/69
[2020-12-07] VITALS: BP 126/66
[2020-12-07] MEDS: DIAZEPAM 5 MG/ML 2 ML SYG IV SCH ×4 (00:21→18:19)
[2020-12-07] MEDS: RISPERIDONE 1 MG TABLET PO SCH ×4 (00:21→18:18)
[2020-12-07] MEDS: DiphenhydrAMINE HCL 50 MG/ML VIAL IV SCH ×3 (01:58→16:35)
[2020-12-07 04:00] VITALS: BP 150/91
[2020-12-07] MEDS: HALOPERIDOL INJ 5 MG/ML VIAL IV SCH ×4 (04:43→22:47)
[2020-12-07 08:00] VITALS: BP 130/72
[2020-12-07] MEDS: HYDROCHLOROTHIAZIDE 25 MG TABLET PO SCH (08:05)
[2020-12-07] MEDS: METOPROLOL TARTRATE 25 MG TAB PO SCH ×2 (08:06→21:14)
[2020-12-07] MEDS: AMLODIPINE 5 MG TAB PO SCH (08:06)
[2020-12-07] MEDS: RIFAXIMIN 550 MG TABLET PO SCH ×2 (08:06→21:14)
[2020-12-07] MEDS: FAMOTIDINE 20MG TAB PO SCH ×2 (08:06→21:14)
[2020-12-07] MEDS: LISINOPRIL 10 MG TABLET PO SCH (08:06)
[2020-12-07] MEDS: THIAMINE HCL 100 MG/ML 2ML VIAL IVP SCH (08:07)
[2020-12-07] MEDS: ENOXAPARIN SODIUM 40 MG/0.4 ML SYRINGE SQ SCH (08:07)
[2020-12-07] MEDS: CHLORPROMAZINE HCL 25 MG/ML 1ML AMP IM SCH ×3 (08:07→21:31)
[2020-12-07] MEDS: QUETIAPINE FUMARATE 25 MG TAB PO SCH ×2 (08:08→21:14)
[2020-12-07] MEDS: LACTULOSE 20 GM/30 ML UDCUP PO SCH ×3 (08:09→21:39)
[2020-12-07] MEDS: 0.9%NACL 1000ML 1,000 ML IV SCH (08:09)
[2020-12-07] MEDS: FOLIC ACID 5 MG/ML VIAL IV SCH (10:08)
[2020-12-07 12:00] VITALS: BP 146/73
[2020-12-07 16:00] VITALS: BP 141/68
[2020-12-07 20:00] VITALS: BP 126/84
[2020-12-08] VITALS: BP 149/78
[2020-12-08] MEDS: RISPERIDONE 1 MG TABLET PO SCH ×4 (00:56→18:06)
[2020-12-08] MEDS: DIAZEPAM 5 MG/ML 2 ML SYG IV SCH ×3 (00:56→11:10)
[2020-12-08] MEDS: DiphenhydrAMINE HCL 50 MG/ML VIAL IV SCH ×3 (01:43→16:25)
[2020-12-08] MEDS: HALOPERIDOL INJ 5 MG/ML VIAL IV PRN (03:01)
[2020-12-08 04:00] VITALS: BP 140/74
[2020-12-08] MEDS: 0.9%NACL 1000ML 1,000 ML IV SCH (04:04)
[2020-12-08] MEDS: HALOPERIDOL INJ 5 MG/ML VIAL IV SCH ×4 (05:00→23:15)
[2020-12-08 05:25] LABS: BASOPHILS % (AUTO) 0.5 % (0.0-5.0); EOSINOPHILS % (AUTO) 1.6 % (0.0-8.0); HEMATOCRIT 39.6 % (42-54); LYMPHOCYTES % (AUTO) 12.9 % (21.0-51.0); MEAN CORPUSCULAR HGB CONC 33.6 g/dL (32.0-36.0); MEAN CORPUSCULAR VOLUME 86.5 fL (79-99); MONOCYTES % (AUTO) 10.5 % (3.0-13.0); PLATELET COUNT (AUTO) 159 K/uL (130-400); RED BLOOD CELL COUNT(AUTO) 4.58 MIL/uL (4.50-6.20); RED CELL DISTRIBUTION WIDTH 13.2 % (11.0-15.5); WHITE BLOOD COUNT (AUTO) 9.6 K/uL (4.8-10.8)
[2020-12-08 05:39] LABS: ALBUMIN 2.8 g/dL (3.5-5.0); CREATININE 0.8 mg/dL (0.5-1.5); POTASSIUM 3.2 mmol/L (3.5-5.1)
[2020-12-08] MEDS: CHLORPROMAZINE HCL 25 MG/ML 1ML AMP IM SCH ×3 (08:23→20:39)
[2020-12-08] MEDS: THIAMINE HCL 100 MG/ML 2ML VIAL IVP SCH (08:23)
[2020-12-08] MEDS: LACTULOSE 20 GM/30 ML UDCUP PO SCH ×3 (08:24→20:16)
[2020-12-08] MEDS: ENOXAPARIN SODIUM 40 MG/0.4 ML SYRINGE SQ SCH (08:24)
[2020-12-08] MEDS: METOPROLOL TARTRATE 25 MG TAB PO SCH ×2 (08:25→20:16)
[2020-12-08] MEDS: LISINOPRIL 10 MG TABLET PO SCH (08:25)
[2020-12-08] MEDS: AMLODIPINE 5 MG TAB PO SCH (08:25)
[2020-12-08] MEDS: RIFAXIMIN 550 MG TABLET PO SCH ×3 (08:25→21:00)
[2020-12-08] MEDS: HYDROCHLOROTHIAZIDE 25 MG TABLET PO SCH (08:25)
[2020-12-08] MEDS: QUETIAPINE FUMARATE 25 MG TAB PO SCH ×2 (08:25→20:16)
[2020-12-08] MEDS: FAMOTIDINE 20MG TAB PO SCH ×2 (08:25→20:16)
[2020-12-08] MEDS ORDERED: KCL 20 MEQ ERTAB PO SCH (09:30)
[2020-12-08] MEDS: FOLIC ACID 5 MG/ML VIAL IV SCH (11:09)
[2020-12-08 20:00] VITALS: BP 135/74
[2020-12-09] VITALS: BP 134/70
[2020-12-09] MEDS: RISPERIDONE 1 MG TABLET PO SCH ×3 (00:32→13:53)
[2020-12-09] MEDS: DIAZEPAM 5 MG/ML 2 ML SYG IV SCH ×3 (00:33→14:42)
[2020-12-09] MEDS: DiphenhydrAMINE HCL 50 MG/ML VIAL IV SCH ×2 (00:34→08:52)
[2020-12-09 04:00] VITALS: BP 141/65
[2020-12-09] MEDS: HALOPERIDOL INJ 5 MG/ML VIAL IV SCH ×2 (04:43→11:29)
[2020-12-09 07:08] LABS: BASOPHILS % (AUTO) 0.6 % (0.0-5.0); EOSINOPHILS % (AUTO) 1.3 % (0.0-8.0); HEMATOCRIT 39.1 % (42-54); LYMPHOCYTES % (AUTO) 15.2 % (21.0-51.0); MEAN CORPUSCULAR HEMOGLOBIN 29.1 pg (27.0-33.0); MEAN CORPUSCULAR HGB CONC 33.8 g/dL (32.0-36.0); MEAN CORPUSCULAR VOLUME 86.1 fL (79-99); NEUTROPHILS % (AUTO) 73.3 % (40.0-77.0); PLATELET COUNT (AUTO) 158 K/uL (130-400); RED BLOOD CELL COUNT(AUTO) 4.54 MIL/uL (4.50-6.20); RED CELL DISTRIBUTION WIDTH 13.2 % (11.0-15.5); WHITE BLOOD COUNT (AUTO) 10.3 K/uL (4.8-10.8)
[2020-12-09 07:12] LABS: ALBUMIN 2.7 g/dL (3.5-5.0); BILIRUBIN,TOTAL 1.3 mg/dL (0.2-1.0); POTASSIUM 3.3 mmol/L (3.5-5.1); TOTAL PROTEIN, SERUM 6.1 g/dL (6.0-8.3)
[2020-12-09] MEDS: LACTULOSE 20 GM/30 ML UDCUP PO SCH ×3 (08:52→21:00)
[2020-12-09] MEDS: ENOXAPARIN SODIUM 40 MG/0.4 ML SYRINGE SQ SCH (08:52)
[2020-12-09] MEDS: THIAMINE HCL 100 MG/ML 2ML VIAL IVP SCH (08:52)
[2020-12-09] MEDS: LISINOPRIL 10 MG TABLET PO SCH (08:53)
[2020-12-09] MEDS: METOPROLOL TARTRATE 25 MG TAB PO SCH ×2 (08:53→21:25)
[2020-12-09] MEDS: RIFAXIMIN 550 MG TABLET PO SCH ×2 (08:53→21:25)
[2020-12-09] MEDS: HYDROCHLOROTHIAZIDE 25 MG TABLET PO SCH (08:53)
[2020-12-09] MEDS: QUETIAPINE FUMARATE 25 MG TAB PO SCH (08:53)
[2020-12-09] MEDS: FOLIC ACID 1 MG TABLET PO SCH (08:53)
[2020-12-09] MEDS: AMLODIPINE 5 MG TAB PO SCH (08:54)
[2020-12-09] MEDS: FAMOTIDINE 20MG TAB PO SCH ×2 (08:54→21:25)
[2020-12-09] MEDS ORDERED: KCL 20 MEQ ERTAB PO SCH (10:00)
[2020-12-09] MEDS: CHLORPROMAZINE HCL 25 MG/ML 1ML AMP IM SCH ×3 (10:50→21:42)
[2020-12-09 16:00] VITALS: BP 117/59
[2020-12-09 20:00] VITALS: BP 134/64
[2020-12-10 01:26] VITALS: BP 115/71
[2020-12-10 03:46] VITALS: BP 128/68
[2020-12-10 05:47] LABS: BASOPHILS % (AUTO) 0.4 % (0.0-5.0); LYMPHOCYTES % (AUTO) 15.8 % (21.0-51.0); MEAN CORPUSCULAR HGB CONC 33.8 g/dL (32.0-36.0); MONOCYTES % (AUTO) 10.7 % (3.0-13.0); NEUTROPHILS % (AUTO) 70.4 % (40.0-77.0); PLATELET COUNT (AUTO) 193 K/uL (130-400); RED BLOOD CELL COUNT(AUTO) 4.65 MIL/uL (4.50-6.20); RED CELL DISTRIBUTION WIDTH 13.1 % (11.0-15.5); WHITE BLOOD COUNT (AUTO) 9.4 K/uL (4.8-10.8)
[2020-12-10 06:01] LABS: ALBUMIN 2.9 g/dL (3.5-5.0); BILIRUBIN,TOTAL 1.3 mg/dL (0.2-1.0); POTASSIUM 3.2 mmol/L (3.5-5.1); TOTAL PROTEIN, SERUM 6.4 g/dL (6.0-8.3)
[2020-12-10 07:14] VITALS: BP 133/85
[2020-12-10] MEDS: LACTULOSE 20 GM/30 ML UDCUP PO SCH ×2 (09:00→13:51)
[2020-12-10] MEDS: KCL 20 MEQ ERTAB PO PRN (09:22)
[2020-12-10] MEDS: FOLIC ACID 1 MG TABLET PO SCH (09:23)
[2020-12-10] MEDS: RIFAXIMIN 550 MG TABLET PO SCH (09:23)
[2020-12-10] MEDS: THIAMINE HCL 100 MG/ML 2ML VIAL IVP SCH (09:23)
[2020-12-10] MEDS: HYDROCHLOROTHIAZIDE 25 MG TABLET PO SCH (09:24)
[2020-12-10] MEDS: ENOXAPARIN SODIUM 40 MG/0.4 ML SYRINGE SQ SCH (09:24)
[2020-12-10] MEDS: LISINOPRIL 10 MG TABLET PO SCH (09:25)
[2020-12-10] MEDS: AMLODIPINE 5 MG TAB PO SCH (09:25)
[2020-12-10] MEDS: FAMOTIDINE 20MG TAB PO SCH (09:25)
[2020-12-10] MEDS: METOPROLOL TARTRATE 25 MG TAB PO SCH (09:26)
[2020-12-10] MEDS: CHLORPROMAZINE HCL 25 MG/ML 1ML AMP IM SCH ×2 (09:27→13:51)
[2020-12-10 11:54] VITALS: BP 110/66
[2020-12-10] MEDS ORDERED: HALOPERIDOL INJ 5 MG/ML VIAL IM SCH (15:00)
[2020-12-10 15:08] VITALS: BP 104/51
== END 2020-12-10 18:10 | DRG 351 ==
LOC: EDH 21:27 → EDHIP 11-23 04:08 → OBSVTOIN 11-23 04:08 → 3CH 11-23 09:05 → 2DH 11-23 17:40 → 3CH 12-03 11:33
PROVIDERS: ADMIT Internal Medicine; ATTEND Internal Medicine
DX: M62.82 Rhabdomyolysis (principal); G93.41 Metabolic encephalopathy; F63.81 Intermittent explosive disorder; F20.9 Schizophrenia, unspecified; E87.6 Hypokalemia; E86.0 Dehydration; F31.9 Bipolar disorder, unspecified; F10.239 Alcohol dependence with withdrawal, unspecified; Z20.822 Contact with and (suspected) exposure to COVID-19; E78.5 Hyperlipidemia, unspecified; I10 Essential (primary) hypertension
CPT/HCPCS: 36415; 71045; 76705; 80048; 80053; 82140; 82150; 82550; 82948; 83690; 83735; 84100; 84145; 84443; 84484; 85025; 85027; 87635; 92526; 92610; 93005; G0378; J0360; J1200; J1630; J1650; J2060; J2704; J3230; J3360; J3411; J3475; J3486; J3490; J7030; J7050; J7120